=== PATIENT | male | born 1965 | race American Indian/Alaskan Native ===

== ENCOUNTER 2018-04-02 10:23 | Outpatient (CLI) | payer OTHER ==
[2018-04-02] MEDS ORDERED: PROVENTIL IH ONE (11:12)
== END 2018-04-02 10:24 | disposition home or self-care (01) ==
LOC: PF 10:23
PROVIDERS: ATTEND Internal Medicine
DX: J44.9 Chronic obstructive pulmonary disease, unspecified (principal)
CPT/HCPCS: 94060; 94640; 94729